=== PATIENT | female | born 1985 ===

== ENCOUNTER 2017-01-25 09:23 | Emergency (ER) | payer OTHER, MEDICAID ==
[2017-01-25 10:08] LABS: RBC URINE 1 /hpf (0-3); URINE BACTERIA RARE (<OCC); URINE BILIRUBIN NEGATIVE (NEGATIVE); URINE BLOOD NEGATIVE (NEGATIVE); URINE COLOR Yellow (YELLOW); URINE GLUCOSE (UA) NORMAL (Normal); URINE KETONE NEGATIVE (NEGATIVE); URINE LEUKOCYTE ESTERASE NEG Leu/uL (Negative); URINE PROTEIN NEGATIVE (NEGATIVE); WBC URINE 1 /hpf (0-5)
--- NOTE | 2017-01-25 11:37 | OBHP ---
Datetime: 01/25/2017 11:28 IP Adm Impression: , intrauterine ; No Active Labor IP Chief Complaint Other: pelvic pressure IP Admit Plan: Discharge home Admit Comment, IP Provider: chief complaint-vaginal pressure HPI 31 y/o at 29.1 wga with c/o pelvic pressure.Patient states that she felt some cristian hic ks last night and then again this morning Patient denies vaginal bleeding or loss of fluid course- care with dr can PMH denies PHS bariatrciu surgery OBGYN HX ; [id number] Social hx denies tobacco,alcohol or illicit drug use Exam see exam section A/P 31 y/o at 29.1 wga with c/o pelvic pressure.Urinalysis neg for nitries and LE.Cervix clos ed. -patient discharged home -increase po fluid intake follow up with dr can next week discussed with dr can Pelvic Type - PN: Adequate Extremities - PN: Normal Abdomen - PN: Normal Back - PN: Normal Lungs - PN: Normal Heart - PN: Normal Neurologic - PN: Normal General - PN: Normal Contraction Comments Provider: none Gestation - Est Wks by US: 29.1 EGA AdmitDate IP: 29.1 Vital Signs Provider: Reviewed; Within Normal Limits IP Chief Complaint: Other FHR Category Provider Fetus A: Category I Dilatation, Provider: 0 Effacement, Provider: thick Station, Provider: high Genitourinary Exam: Normal DTRs - PN: Normal
== END 2017-01-25 11:19 | disposition home or self-care (01) ==
LOC: C.EROB 09:23
DX: O26.893 Other specified pregnancy related conditions, third trimester (principal); R10.2 Pelvic and perineal pain; Z3A.29 29 weeks gestation of pregnancy

== ENCOUNTER 2017-03-07 23:17 | Emergency (ER) | payer OTHER, MEDICAID ==
[2017-03-07 23:50] VITALS: BMI 29.0
[2017-03-07] MEDS ORDERED: Lactated Ringer's 1,000 ML IV ONE (23:51)
[2017-03-08 00:26] LABS: BASO % 0.3 % (0.0-2.0); EOS # 0.1 K/uL (0.0-0.7); EOS % 0.9 % (0.0-4.0); HEMATOCRIT 29.9 % (34.0-47.0); LYMPH # 2.5 K/uL (1.0-4.3); LYMPH % 21.5 % (20.0-40.0); MEAN CELL VOLUME 77.2 fL (81.0-99.0); MEAN CORPUSCULAR HEMOGLOBIN 24.9 pg (27.0-31.0); MEAN CORPUSCULAR HGB CONC 32.2 g/dL (33.0-37.0); MEAN PLATELET VOLUME 10.4 fL (7.2-11.7); MONO # 0.6 K/uL (0.0-0.8); MONO % 4.9 % (0.0-10.0); NRBC % 0.2 % (0.0-2.0); RED CELL DISTRIBUTION WIDTH 13.8 % (11.5-14.5); WHITE BLOOD COUNT 11.4 K/uL (4.8-10.8)
[2017-03-08 00:36] LABS: RBC URINE 16 /hpf (0-3); URINE BACTERIA FEW (<OCC); URINE BILIRUBIN NEGATIVE (NEGATIVE); URINE BLOOD NEGATIVE (NEGATIVE); URINE COLOR Yellow (YELLOW); URINE GLUCOSE (UA) NORMAL (Normal); URINE KETONE NEGATIVE (NEGATIVE); URINE LEUKOCYTE ESTERASE 3+ Leu/uL (Negative); URINE PROTEIN NEGATIVE (NEGATIVE); URINE UROBILINOGEN NORMAL mg/dL (0.2-1.0); WBC URINE 16 /hpf (0-5)
[2017-03-08 00:52] LABS: ALB/GLOB RATIO 0.9 (1.0-2.1); ALKALINE PHOSPHATASE 110 U/L (38-126); ALT/SGPT 23 U/L (9-52); AST/SGOT 21 U/L (14-36); BILIRUBIN,TOTAL 0.3 mg/dL (0.2-1.3); BLOOD UREA NITROGEN 8 mg/dL (7-17); CALCIUM 8.8 mg/dl (8.6-10.4); CARBON DIOXIDE 22 mmol/L (22-30); CHLORIDE 105 mmol/L (98-107); GFR AFRICAN-AMERICAN > 60; GLUCOSE,RANDOM 81 mg/dL (65-105); POTASSIUM 3.8 mmol/L (3.6-5.2); SODIUM 137 mmol/L (132-148); TOTAL PROTEIN 6.3 g/dL (6.3-8.3); URIC ACID 2.6 mg/dL (2.2-7.5)
[2017-03-08 07:09] VITALS: BP 114/67; PULSE 60; RESP 18; TEMP 97; O2SAT 100
== END 2017-03-08 02:54 | disposition home or self-care (01) ==
LOC: C.EROB 23:17
DX: O26.893 Other specified pregnancy related conditions, third trimester (principal); Z3A.35 35 weeks gestation of pregnancy; R10.11 Right upper quadrant pain
CPT/HCPCS: 80053; 81001; 83615; 83690; 84550; 85025; 99283; J7120

== ENCOUNTER 2017-03-30 10:55 | Inpatient (IN) | payer OTHER, MEDICAID ==
[2017-03-30 21:24] VITALS: BMI 31.8
[2017-03-30 22:02] LABS: BASO % 0.4 % (0.0-2.0); EOS # 0.1 K/uL (0.0-0.7); EOS % 0.8 % (0.0-4.0); HEMATOCRIT 29.7 % (34.0-47.0); LYMPH # 2.3 K/uL (1.0-4.3); LYMPH % 26.9 % (20.0-40.0); MEAN CELL VOLUME 76.4 fL (81.0-99.0); MEAN CORPUSCULAR HEMOGLOBIN 24.8 pg (27.0-31.0); MEAN CORPUSCULAR HGB CONC 32.5 g/dL (33.0-37.0); MEAN PLATELET VOLUME 10.2 fL (7.2-11.7); MONO # 0.4 K/uL (0.0-0.8); MONO % 4.5 % (0.0-10.0); RED CELL DISTRIBUTION WIDTH 15.3 % (11.5-14.5); WHITE BLOOD COUNT 8.6 K/uL (4.8-10.8)
[2017-03-30 22:04] LABS: RBC URINE < 1 /hpf (0-3); URINE BILIRUBIN NEGATIVE (NEGATIVE); URINE BLOOD NEGATIVE (NEGATIVE); URINE COLOR Yellow (YELLOW); URINE GLUCOSE (UA) NORMAL (Normal); URINE KETONE NEGATIVE (NEGATIVE); URINE LEUKOCYTE ESTERASE TRACE Leu/uL (Negative); URINE PROTEIN NEGATIVE (NEGATIVE); WBC URINE 1 /hpf (0-5)
[2017-03-30 22:12] LABS: CHLORIDE 103 mmol/L (98-107); POTASSIUM 3.8 mmol/L (3.6-5.2); SODIUM 132 mmol/L (132-148)
[2017-03-30 22:14] LABS: AST/SGOT 20 U/L (14-36); BILIRUBIN,TOTAL 0.5 mg/dL (0.2-1.3); CARBON DIOXIDE 19 mmol/L (22-30); GFR AFRICAN-AMERICAN > 60
[2017-03-30 22:15] LABS: ALB/GLOB RATIO 0.9 (1.0-2.1); ALKALINE PHOSPHATASE 125 U/L (38-126); ALT/SGPT 22 U/L (9-52); BLOOD UREA NITROGEN 10 mg/dL (7-17); CALCIUM 8.6 mg/dl (8.6-10.4); GLUCOSE,RANDOM 87 mg/dL (65-105); TOTAL PROTEIN 6.3 g/dL (6.3-8.3)
[2017-03-30] MEDS ORDERED: Lactated Ringer's 1,000 ML IV ONE (22:19)
--- NOTE | 2017-03-30 22:19 | OBADHP ---
Datetime: 03/30/2017 22:16 Admit Comment, IP Provider: at 39weks paty for induction, no ctxs, vb, lof,+fm obhx 1 x pmh asthma med pnv all nkda psh den soch den ve /-3 a/p at 39weeks paty for induction admit to l_d npo/ivf labs pain manage cervidil cont kaye and efm anticipate Pelvic Type - PN: Adequate Extremities - PN: Normal Abdomen - PN: Normal Back - PN: Normal Breast - PN: Not Done Lungs - PN: Normal Heart - PN: Normal Thyroid - PN: Not Done Neurologic - PN: Normal HEENT - PN: Normal General - PN: Normal FHR - Baseline A Provider: 130 Contraction Comments Provider: none Comments, ACOG Physical Exam: gravid,non tender ext no edema,no calf ten IP Hx Assessment: The History has been Reviewed and is Current Vital Signs Provider: Reviewed; Within Normal Limits IP Chief Complaint: Scheduled induction of labor NICHD Variability Prov Fetus A: Moderate 6-25bpm NICHD Accel Fetus A IP Provider: [id number] FHR Category Provider Fetus A: Category I Dilatation, Provider: 1 Effacement, Provider: 50 Station, Provider: -3 Genitourinary Exam: Normal DTRs - PN: Normal EGA AdmitDate IP: 39.0 IP Adm Impression: Term, intrauterine ; No Active Labor; Intact Membranes IP Admit Plan: Admit to unit; Initiate labor induction protocol Datetime: 03/07/2017 23:53 IP Chief Complaint Other: epigastric pain; chest pressure Presentation-Admit: Breech Gestation - Est Wks by US: 35.0 Vital Signs Provider Details: O2 saturation = 100% on room air NICHD Decel Fetus A IP Provider: None
[2017-03-30] MEDS ORDERED: Nalbuphine 20 mg/ml Inj (1 ml) IVP PRN (22:30)
[2017-03-30] MEDS ORDERED: Lactated Ringer's 1,000 ML IV SCH (22:30)
[2017-03-31] MEDS ORDERED: Nalbuphine 20 mg/ml Inj (1 ml) ONE (01:40)
[2017-03-31] MEDS ORDERED: Bupivacaine HCl 0.25% PF (10 ml) Inj ONE (10:43)
[2017-03-31] MEDS ORDERED: Bupivacaine 0.125%/FentaNYL 200 ML EPI ONE (10:43)
[2017-03-31] MEDS ORDERED: Oxytocin 30 UNIT 30 UNITS/500 ML BAG IV SCH (11:45)
[2017-03-31] MEDS ORDERED: Oxytocin 30 UNIT 30 UNITS/500 ML BAG IV ONE (11:57)
--- NOTE | 2017-03-31 15:16 | OBPN ---
Datetime: 03/31/2017 15:10 IP Progress Impression: Reassuring heart rate IP Procedures: Artificial ROM; Sterile Vag Exam IP Progress Plan: Continue present management Contraction Comments Provider: every 2-3min with occ coupling FHR - Baseline A Provider: 125 Gestation - Est Wks by US: 39.1 Weight - Estimated: 3200 Presentation-Admit: Vertex IP Progress Note Comment: S-patient states that she feels heaviness in legs from epidural but is fee ling mild contractions FHT 125, mod onel [place] ctx 2-3min with occ coupling sve 3/80/-2 pit at 8 A/P Patient at 39 weeks and 1 day .s/p ceridil and now on pitocin.asked by dr scanlon to arom -arom done.clear fluid -continue management as per primary MD Dr Scanlon aware FHR Category Provider Fetus A: Category I NICHD Variability Prov Fetus A: Moderate 6-25bpm Dilatation, Provider: 3 Effacement, Provider: 80 Station, Provider: -2 NICHD Decel Fetus A IP Provider: None Datetime: 03/30/2017 22:16 Vital Signs Provider: Reviewed; Within Normal Limits NICHD Accel Fetus A IP Provider: [id number] Datetime: 03/07/2017 23:53 Vital Signs Provider Details: O2 saturation = 100% on room air
[2017-03-31] MEDS ORDERED: Lidocaine 2% Inj (20ml) ONE (17:26)
--- NOTE | 2017-03-31 18:42 | OBDS ---
DELIVERY PERSONNEL Delivery Doctor: Beth Nava MD Cans Vacuum Tester: Ama Tran RN Anesthesiologist: dr. dee MATERNAL INFORMATION Delivery Anesthesia: Epidural Estimated Blood Loss (ml): 200 cc Maternal Complications: None LABOR SUMMARY EDC: 04/06/2017 00:00 No. Babies in Womb: 1 (Annotations: Data stored by [facility] on behalf of user) LABOR INFORMATION Reason for Induction: Macrosomia; Other Reason for Induction Other: suspected macrosomia Cervical Ripening Agents: Cervidil Cervical Ripening Agents: Cervidil Cervical Ripening Agents: Cervidil (Annotations: 10 mg vaginally) Group B Beta Strep: Negative Antibiotics # of Doses: n/a Antibiotics Time of Last Dose: n/a MEMBRANES Membranes Rupture Method: Artificial Amniotic Fluid Color: Clear Amniotic Fluid Amount: Moderate Amniotic Fluid Odor: Normal VAGINAL DELIVERY Episiotomy: None Laceration Extension: N/A Laceration Type: None Laceration Repair: Not Applicable Sponge Count Correct: Yes Sharps Count Correct: N/A INFORMATION BABY A Gestational Age at Delivery: 39.1 Gestational Status: Term IDENTIFICATION/MEDS BABY A ID Band Number: [id number] Sensor Number: [id number]
[2017-03-31] MEDS ORDERED: Benzocaine/Menthol 20%-0.5% Topical Spray (60 ml) TOP PRN (21:51)
[2017-03-31] MEDS ORDERED: Oxycodone/Acetaminophen 5/325 mg Tab PO PRN (21:51)
[2017-04-01 09:12] LABS: BASO % 0.4 % (0.0-2.0); EOS # 0.1 K/uL (0.0-0.7); EOS % 0.6 % (0.0-4.0); HEMATOCRIT 29.8 % (34.0-47.0); LYMPH # 1.9 K/uL (1.0-4.3); LYMPH % 16.9 % (20.0-40.0); MEAN CELL VOLUME 77.4 fL (81.0-99.0); MEAN CORPUSCULAR HEMOGLOBIN 25.1 pg (27.0-31.0); MEAN CORPUSCULAR HGB CONC 32.5 g/dL (33.0-37.0); MEAN PLATELET VOLUME 10.4 fL (7.2-11.7); MONO # 0.5 K/uL (0.0-0.8); MONO % 4.4 % (0.0-10.0); RED CELL DISTRIBUTION WIDTH 15.3 % (11.5-14.5); WHITE BLOOD COUNT 11.4 K/uL (4.8-10.8)
[2017-04-01] MEDS: Multiple Vitamins Tab PO SCH (11:21)
[2017-04-01] MEDS: Oxycodone/Acetaminophen 5/325 mg Tab PO PRN ×2 (17:37→22:24)
[2017-04-02 00:18] VITALS: RESP 20
[2017-04-02 08:05] VITALS: BP 112/74; PULSE 77; TEMP 97.1; O2SAT 99
[2017-04-02] MEDS: Multiple Vitamins Tab PO SCH (09:47)
[2017-04-02] MEDS ORDERED: Influenza Vaccine 60 mcg/0.5 mL SYR (4YR UP) IM ONE (10:28)
[2017-04-02] MEDS: Oxycodone/Acetaminophen 5/325 mg Tab PO PRN (11:25)
== END 2017-04-02 13:02 | disposition home or self-care (01) | DRG 775 ==
LOC: C.4D 21:19 → C.4M 03-31 21:30
PROVIDERS: ADMIT Obstetrics & Gynecology; ATTEND Obstetrics & Gynecology
PROC: 10907ZC Drainage of Amniotic Fluid, Therapeutic from Products of Conception, Via Natural or Artificial Opening (ICD-10-PCS; 2017-03-30)
PROC: 10E0XZZ Delivery of Products of Conception, External Approach (ICD-10-PCS; principal; 2017-03-31)
PROC: 3E0P7VZ Introduction of Hormone into Female Reproductive, Via Natural or Artificial Opening (ICD-10-PCS; 2017-03-31)
DX: O36.63X0 Maternal care for excessive fetal growth, third trimester, not applicable or unspecified (principal); O99.52 Diseases of the respiratory system complicating childbirth; J45.909 Unspecified asthma, uncomplicated; Z37.0 Single live birth; Z3A.39 39 weeks gestation of pregnancy